=== PATIENT | female | born 2000 | race Caucasian/White ===

== ENCOUNTER 2025-07-16 16:20 | Outpatient (CLI) | payer OTHER | END 2025-07-16 16:21 | disposition home or self-care (01) | LOC: SCSRAD 16:20 | PROVIDERS: ATTEND Nurse Practitioner Family | DX: R10.31 Right lower quadrant pain (principal); Z87.19 Personal history of other diseases of the digestive system | CPT/HCPCS: 74018 ==

== ENCOUNTER 2025-08-05 13:46 | Outpatient (CLI) | payer BC | END 2025-08-05 13:47 | disposition home or self-care (01) | LOC: SCSMRI 13:46 | PROVIDERS: ATTEND Family Medicine | DX: K76.89 Other specified diseases of liver (principal) | CPT/HCPCS: 74183; A9581 ==